=== PATIENT | male | born 1970 | race Caucasian/White ===

== ENCOUNTER → 2016-07-04 | Outpatient (REF) | payer OTHER | LOC: M SFHCLERA 16:37 | PROVIDERS: ATTEND Nurse Practitioner Family | DX: R53.81 Other malaise (principal) ==

== ENCOUNTER → 2017-10-27 | Outpatient (CLI) | payer OTHER ==
[~2017-10-27] MED LIST: E-Z-GAS II EFFERVESCENT PACKET (SODIUM BICARB./CITRIC ACID/SIMETHICONE) As Ordered; E-Z-HD 98% w/w 340GM SUSP BTL As Ordered; E-Z-PAQUE 96% w/w SUSP 176GM BTL As Ordered
== END ==
LOC: M RAD 09:53
DX: R13.10 Dysphagia, unspecified (principal); K21.9 Gastro-esophageal reflux disease without esophagitis
CPT/HCPCS: 74220

== ENCOUNTER 2017-11-06 12:17 | Day surgery (SDC) | payer OTHER ==
[2017-11-06] MEDS ORDERED: NS 1,000 ML IV (13:00)
[2017-11-06] MEDS ORDERED: fentaNYL 100 MCG/2 ML INJECTION (J3010) As Ordered (14:04)
[2017-11-06] MEDS ORDERED: PROPOFOL 200 MG/20 ML VIAL As Ordered (14:05)
[2017-11-06] MEDS ORDERED: LIDOCAINE 2% INJ 100 MG/5 ML SDV (FOR ANES.) As Ordered (14:05)
== END 2017-11-06 14:47 | disposition home or self-care (01) ==
LOC: M OPP 12:17
DX: R13.10 Dysphagia, unspecified (principal); K29.70 Gastritis, unspecified, without bleeding; K20.9 Esophagitis, unspecified; E78.5 Hyperlipidemia, unspecified; K21.9 Gastro-esophageal reflux disease without esophagitis; R12 Heartburn; G47.30 Sleep apnea, unspecified; Z79.899 Other long term (current) drug therapy
CPT/HCPCS: 43239

== ENCOUNTER 2017-11-12 15:25 | Emergency (ER) | payer OTHER | END 2017-11-12 17:28 | disposition home or self-care (01) | LOC: M ED 15:25 | DX: R03.0 Elevated blood-pressure reading, without diagnosis of hypertension (principal); R07.89 Other chest pain; M54.6 Pain in thoracic spine; S30.810A Abrasion of lower back and pelvis, initial encounter; V91.2 Fall due to collision between watercraft and other watercraft or other object; Y92.89 Other specified places as the place of occurrence of the external cause; R91.8 Other nonspecific abnormal finding of lung field; R06.02 Shortness of breath; E78.5 Hyperlipidemia, unspecified; K21.9 Gastro-esophageal reflux disease without esophagitis; G47.33 Obstructive sleep apnea (adult) (pediatric); Z79.899 Other long term (current) drug therapy | CPT/HCPCS: 71046 ==

== ENCOUNTER 2019-09-08 20:07 | Emergency (ER) | payer BC, OTHER ==
[~2019-09-08] VITALS: Ht 175.3 cm; Wt 75.7 kg
[~2019-09-08 20:07] MED LIST changes: +ATOR40TA75 PO; -E-Z-GAS II EFFERVESCENT PACKET (SODIUM BICARB./CITRIC ACID/SIMETHICONE) As Ordered; -E-Z-HD 98% w/w 340GM SUSP BTL As Ordered; -E-Z-PAQUE 96% w/w SUSP 176GM BTL As Ordered; +OMEP40CA97 PO; +RED1CAP5 PO; +RED600TA PO; +ZANT150T40 PO
[2019-09-08] MEDS ORDERED: OMEP-218 (20:14)
[2019-09-08] MEDS ORDERED: FAMO40TA3 (20:14)
[2019-09-08 20:43] VITALS: BP 148/88
[2019-09-08] MEDS ORDERED: SIMETHICONE 80 MG CHEW TAB PO ONE (21:30)
--- NOTE | 2019-09-09 00:23 | ECGEPIP ---
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
== END 2019-09-08 21:32 | disposition home or self-care (01) ==
LOC: M ED 20:07
DX: R10.13 Epigastric pain (principal); K22.4 Dyskinesia of esophagus; Z79.899 Other long term (current) drug therapy

== ENCOUNTER 2019-11-14 14:47 | Emergency (ER) | payer BC ==
[~2019-11-14] VITALS: Ht 175.3 cm; Wt 76.1 kg
[~2019-11-14 14:47] MED LIST changes: +FAMO40TA3; +OMEP-218
[2019-11-14] MEDS ORDERED: DOXY100C37 (15:02)
[2019-11-14] MEDS ORDERED: LIDOCAINE 2% MDV 20ML VIAL As Ordered ONE (15:07)
[2019-11-14] MEDS ORDERED: BOOSTRIX/ADACEL VACCINE (DIPHTH/PERTUSS/ACELL/TETANUS) 0.5ML SYR IM ONE (15:15)
[2019-11-14] MEDS ORDERED: LIDOCAINE 2% MDV 20ML VIAL SC ONE (15:30)
[2019-11-14 15:48] VITALS: BP 145/67
== END 2019-11-14 15:49 | disposition home or self-care (01) ==
LOC: M ED 14:47
DX: S61.441A Puncture wound with foreign body of right hand, initial encounter (principal); W45.8XXA Other foreign body or object entering through skin, initial encounter; W26.8XXA Contact with other sharp object(s), not elsewhere classified, initial encounter; Y92.9 Unspecified place or not applicable; Y93.9 Activity, unspecified; Y99.9 Unspecified external cause status; K21.9 Gastro-esophageal reflux disease without esophagitis

== ENCOUNTER 2020-03-09 11:05 | Emergency (ER) | payer BC ==
[~2020-03-09] VITALS: Ht 175.3 cm; Wt 74.9 kg
[2020-03-09 11:05] VITALS: BP 146/85
[~2020-03-09 11:05] MED LIST changes: +DOXY100C37
[2020-03-09] MEDS ORDERED: NAPR220C14 PO (11:11)
--- NOTE | 2020-03-09 12:03 | REP ---
INDICATION: pt fall. COMPARISON: None. TECHNIQUE: Two views of right clavicle performed. FINDINGS: No acute fracture or dislocation is seen. There is mild joint space narrowing and spurring at the glenohumeral joint. IMPRESSION: No acute fracture or dislocation. <Electronically signed by Sean Santana > 03/09/20 [id number]
== END 2020-03-09 12:54 | disposition home or self-care (01) ==
LOC: M ED 11:05
DX: S46.911A Strain of unspecified muscle, fascia and tendon at shoulder and upper arm level, right arm, initial encounter (principal); S29.011A Strain of muscle and tendon of front wall of thorax, initial encounter; X50.0XXA Overexertion from strenuous movement or load, initial encounter; Y92.828 Other wilderness area as the place of occurrence of the external cause; Y93.89 Activity, other specified; M19.011 Primary osteoarthritis, right shoulder; M25.511 Pain in right shoulder; E78.5 Hyperlipidemia, unspecified; G47.33 Obstructive sleep apnea (adult) (pediatric); K21.9 Gastro-esophageal reflux disease without esophagitis

== ENCOUNTER → 2021-08-24 | Outpatient (CLI) | payer BC ==
[~2021-08-24] MED LIST changes: +DOXY-443; -DOXY100C37; +E-Z-GAS II EFFERVESCENT PACKET (SODIUM BICARB./CITRIC ACID/SIMETHICONE) As Ordered ONE; +E-Z-HD 98% w/w 340GM SUSP BTL As Ordered ONE; +E-Z-PAQUE 96% w/w SUSP 176GM BTL As Ordered ONE; +NAPR220C14 PO; +OMEP-173; +OMEP-173 PO; -OMEP-218; +OMEP40CA4 PO; -OMEP40CA97 PO
== END ==
LOC: M RAD 08:51
PROVIDERS: ATTEND Physician Assistant Medical
DX: R13.10 Dysphagia, unspecified (principal)

== ENCOUNTER → 2021-09-03 | Outpatient (CLI) | payer BC ==
[~2021-09-03] MED LIST changes: -E-Z-GAS II EFFERVESCENT PACKET (SODIUM BICARB./CITRIC ACID/SIMETHICONE) As Ordered ONE; -E-Z-HD 98% w/w 340GM SUSP BTL As Ordered ONE; -E-Z-PAQUE 96% w/w SUSP 176GM BTL As Ordered ONE
== END ==
LOC: M LABSMTC 11:18
PROVIDERS: ATTEND Anesthesiology
DX: Z01.812 Encounter for preprocedural laboratory examination (principal); Z20.822 Contact with and (suspected) exposure to COVID-19

== ENCOUNTER 2021-09-07 11:56 | Day surgery (SDC) | payer BC ==
[~2021-09-07] VITALS: Ht 175.3 cm; Wt 72.1 kg
[~2021-09-07 11:56] MED LIST changes: +LIDOCAINE 2% 100MG/5ML SDV (FOR ANES.) As Ordered ONE; +NS 1,000 ML IV ONE; +propofoL 200 MG/20 ML VIAL As Ordered ONE
[2021-09-07] MEDS ORDERED: propofoL 200 MG/20 ML VIAL As Ordered ONE (14:47)
[2021-09-07 15:20] VITALS: BP 141/92
== END 2021-09-07 15:32 | disposition home or self-care (01) ==
LOC: M OPP 11:56
PROVIDERS: ATTEND Internal Medicine Gastroenterology
DX: Q39.4 Esophageal web (principal); K22.2 Esophageal obstruction; K31.7 Polyp of stomach and duodenum; R13.10 Dysphagia, unspecified; R12 Heartburn; E78.5 Hyperlipidemia, unspecified; G47.30 Sleep apnea, unspecified; Z99.89 Dependence on other enabling machines and devices; Z79.02 Long term (current) use of antithrombotics/antiplatelets; Z79.899 Other long term (current) drug therapy

== ENCOUNTER 2025-02-07 08:20 | Day surgery (SDC) | payer BC ==
[~2025-02-07] VITALS: Ht 175.3 cm; Wt 67.3 kg
[~2025-02-07 08:20] MED LIST changes: +DOXY-441; -DOXY-443; -LIDOCAINE 2% 100MG/5ML SDV (FOR ANES.) As Ordered ONE; -NS 1,000 ML IV ONE; +ROSU20TA86 PO; -propofoL 200 MG/20 ML VIAL As Ordered ONE
[2025-02-07] MEDS ORDERED: MIDAZOLAM INJ 2 MG/2 ML VIAL As Ordered ONE (09:29)
[2025-02-07] MEDS ORDERED: GLYCOPYRROLATE INJ 0.2 MG/ML 2 ML VIAL As Ordered ONE (09:29)
[2025-02-07] MEDS ORDERED: LIDOCAINE 2% 100 MG/5 ML SDV (FOR ANES.) As Ordered ONE (09:29)
[2025-02-07 09:52] VITALS: TEMP 97
[2025-02-07 10:08] VITALS: BP 136/75; O2SAT 96
== END 2025-02-07 10:14 | disposition home or self-care (01) ==
LOC: M OPP 08:20
PROVIDERS: ATTEND Internal Medicine Gastroenterology
DX: Z12.11 Encounter for screening for malignant neoplasm of colon (principal); K64.8 Other hemorrhoids; G47.30 Sleep apnea, unspecified; Z79.899 Other long term (current) drug therapy
CPT/HCPCS: 45378; J1596; J2250